=== PATIENT | female | born 1955 | race African-American/Black ===

== ENCOUNTER 2021-05-01 11:06 | Inpatient (IN) | payer BC ==
[2021-05-01 14:36] VITALS: BMI 23.5
[2021-05-01] MEDS ORDERED: METHADONE HCL 10 MG TABLET (FOR DETOX USE ONLY) PO ONE (18:52)
[2021-05-01] MEDS ORDERED: MAGNESIUM CITRATE 300 ML BOTTLE PO PRN (18:52)
[2021-05-01] MEDS ORDERED: MENTHOL/PHENOL 1 EACH UD MM PRN (18:52)
[2021-05-01] MEDS ORDERED: ONDANSETRON *ODT* 4 MG TABLET SL PRN (18:52)
[2021-05-01] MEDS ORDERED: METHOCARBAMOL 500 MG TABLET PO PRN (18:52)
[2021-05-01] MEDS ORDERED: IBUPROFEN 400 MG TABLET (FP) PO PRN (18:52)
[2021-05-01] MEDS ORDERED: MAGNESIUM HYDROX 2400MG/30ML ORAL SUSPENSION 30 ML CUP PO PRN (18:52)
[2021-05-01] MEDS ORDERED: ACETAMINOPHEN 325 MG TABLET (FP) PO PRN ×2 (18:52)
[2021-05-01] MEDS ORDERED: NICOTINE POLACRILEX 2 MG GUM BUC PRN (18:52)
[2021-05-01] MEDS ORDERED: MAG HYDROX/AL HYDROX/SIMETH 30 ML UNIT-DOSE CUP PO PRN (18:52)
[2021-05-01] MEDS ORDERED: BISMUTH SUBSALICYLATE 524 MG/30 ML PO PRN (18:52)
[2021-05-01] MEDS ORDERED: cloNIDine HCL 0.1 MG TABLET PO PRN (18:52)
[2021-05-01] MEDS: MELATONIN 5 MG TABLETS PO SCH (21:44)
[2021-05-01] MEDS: hydrOXYzine PAMOATE 25 MG CAPSULE (FP) PO SCH (21:44)
[2021-05-01] MEDS: THIAMINE HCL 100 MG TABLET (FP) PO SCH (21:44)
[2021-05-02] MEDS: hydrOXYzine PAMOATE 25 MG CAPSULE (FP) PO SCH ×5 (06:36→22:36)
[2021-05-02] MEDS ORDERED: METHADONE HCL 5 MG TABLET (FOR DETOX USE ONLY) ONE (09:29)
[2021-05-02] MEDS ORDERED: METHADONE HCL 10 MG TABLET (FOR DETOX USE ONLY) ONE (09:30)
[2021-05-02] MEDS ORDERED: METHADONE (DETOX) 20 MG, METHADONE (DETOX) 5 MG PO ONE (10:00)
[2021-05-02] MEDS: PRENATAL VITAMINS W/ FOLIC ACID TABLET (FP) PO SCH (10:19)
[2021-05-02] MEDS: MELATONIN 5 MG TABLETS PO SCH (22:36)
[2021-05-02] MEDS: THIAMINE HCL 100 MG TABLET (FP) PO SCH (22:36)
[2021-05-03] MEDS: hydrOXYzine PAMOATE 25 MG CAPSULE (FP) PO SCH ×4 (05:44→13:58)
[2021-05-03 09:38] VITALS: PULSE 88; TEMP 98.3
[2021-05-03] MEDS ORDERED: METHADONE HCL 10 MG TABLET (FOR DETOX USE ONLY) PO ONE (10:00)
[2021-05-03] MEDS: PRENATAL VITAMINS W/ FOLIC ACID TABLET (FP) PO SCH (10:06)
[2021-05-03 10:30] LABS: HEMATOCRIT 42.8 % (32.4-45.2); MCH 28.4 pg (25.7-33.7); MCHC 32.7 g/dl (32.0-36.0); MEAN CELL VOLUME 86.9 fl (80-96); PLATELET COUNT 200 K/MM3 (134-434); RBC 4.93 M/mm3 (3.60-5.2); RDW 14.2 % (11.6-15.6); WHITE BLOOD COUNT 5.4 K/mm3 (4.0-10.0)
[2021-05-03 13:41] VITALS: BP 124/77
[2021-05-03 15:06] LABS: CALCIUM 9.6 mg/dL (8.5-10.1)
[2021-05-03 15:07] LABS: ALBUMIN 3.4 g/dl (3.4-5.0); BLOOD UREA NITROGEN 45.8 mg/dL (7-18)
[2021-05-03 15:08] LABS: CREATININE 1.4 mg/dL (0.55-1.3)
[2021-05-03 15:14] LABS: BILIRUBIN,TOTAL 0.4 mg/dL (0.2-1)
[2021-05-04] MEDS ORDERED: METHADONE (DETOX) 10 MG, METHADONE (DETOX) 5 MG PO ONE (10:00)
[2021-05-05] MEDS ORDERED: METHADONE HCL 10 MG TABLET (FOR DETOX USE ONLY) PO ONE (10:00)
[2021-05-06] MEDS ORDERED: METHADONE HCL 5 MG TABLET (FOR DETOX USE ONLY) PO ONE (06:00)
== END 2021-05-03 16:06 | disposition left against medical advice (07) | DRG 894 ==
LOC: YASAS 11:06 → Y6N 20:50
PROVIDERS: ADMIT Allergy & Immunology; ATTEND Allergy & Immunology
PROC: HZ2ZZZZ Detoxification Services for Substance Abuse Treatment (ICD-10-PCS; principal; 2021-05-01)
DX: F11.23 Opioid dependence with withdrawal (principal); F17.213 Nicotine dependence, cigarettes, with withdrawal; F41.8 Other specified anxiety disorders; F32.9 Major depressive disorder, single episode, unspecified; G47.00 Insomnia, unspecified; E78.5 Hyperlipidemia, unspecified; I10 Essential (primary) hypertension; Z98.890 Other specified postprocedural states; Z88.1 Allergy status to other antibiotic agents; Z91.013 Allergy to seafood
CPT/HCPCS: 36415; 80053; 85027; 86780; 93005; 93010; C9803; U0003; U0005